=== PATIENT | female | born 1945 | race Caucasian/White ===

== ENCOUNTER → 2017-02-09 | Outpatient (CLI) | payer MEDICARE ==
[~2017-02-09] MED LIST: ALEN70TA5 PO; ASPI-496 PO; ATEN100T PO; ATOR40TA78 PO; CALC1TAB86 PO; CEFD300C37 PO; FLUO10CA7 PO; HYDR-3307 PO; LISI-170 PO; MULT-717 PO; NAPR500T PO; OMEP-110 PO; SITA50TA PO
== END | disposition home or self-care (01) ==
LOC: CFH 14:39 → EDSTATUS 16:00
PROVIDERS: ATTEND Psychiatry & Neurology Neurology
DX: M48.02 Spinal stenosis, cervical region (principal); M25.78 Osteophyte, vertebrae; M50.03 Cervical disc disorder with myelopathy, cervicothoracic region; M51.34 Other intervertebral disc degeneration, thoracic region; G31.9 Degenerative disease of nervous system, unspecified; Z98.1 Arthrodesis status
CPT/HCPCS: 72141

== ENCOUNTER → 2017-07-07 | Outpatient (CLI) | payer MEDICARE | END | disposition home or self-care (01) | LOC: CVU 08:39 | PROVIDERS: ATTEND Nurse Practitioner | DX: I10 Essential (primary) hypertension (principal); E78.5 Hyperlipidemia, unspecified; R20.0 Anesthesia of skin; E11.21 Type 2 diabetes mellitus with diabetic nephropathy; Z72.0 Tobacco use | CPT/HCPCS: 93922 ==

== ENCOUNTER → 2017-08-10 | Outpatient (CLI) | payer MEDICARE | END | disposition home or self-care (01) | LOC: CFH 15:09 | PROVIDERS: ATTEND Nurse Practitioner | DX: Z12.2 Encounter for screening for malignant neoplasm of respiratory organs (principal); I25.10 Atherosclerotic heart disease of native coronary artery without angina pectoris; R91.1 Solitary pulmonary nodule; F17.210 Nicotine dependence, cigarettes, uncomplicated | CPT/HCPCS: G0297 ==

== ENCOUNTER 2017-11-03 16:47 | Emergency (ER) | payer MEDICARE ==
[~2017-11-03] VITALS: Ht 157.5 cm; Wt 99.3 kg
[~2017-11-03 16:47] MED LIST changes: +NAPR-856 PO; -NAPR500T PO
[2017-11-03] MEDS ORDERED: OMNIPAQUE 350 MG/ML, 100ML BOTTLE ONE (18:01)
[2017-11-03 18:03] LABS: MICROSCOPIC INDICATED
[2017-11-03 18:04] LABS: CULTURE INDICATED? YES
[2017-11-03] MEDS ORDERED: METF500T4 PO (18:07)
[2017-11-03] MEDS ORDERED: HYDR12.53 PO (18:07)
[2017-11-03] MEDS ORDERED: INSU100V8 SQ (18:07)
[2017-11-03] MEDS ORDERED: INSU100C5 SQ-INSULIN (18:07)
[2017-11-03 18:11] LABS: MEAN CORPUSCULAR HEMOGLOBIN 32.1 pg (27.0-34.8); MEAN CORPUSCULAR HGB CONC 34.1 g/dL (32.4-35.8); MEAN CORPUSCULAR VOLUME 94.3 fL (80-100); MEAN PLATELET VOLUME 8.8 fL (7.4-10.4); PLATELET COUNT 259 x10^3/uL (130-400); RED BLOOD COUNT 5.15 x10^6/uL (3.82-5.3); RED CELL DISTRIBUTION WIDTH 13.8 % (9.6-15.2)
[2017-11-03 18:23] LABS: ALBUMIN 3.8 g/dL (3.4-5.0); ANION GAP 8 mmol/L (5-15); CALCIUM 9.4 mg/dL (8.5-10.1); CHLORIDE 97 mmol/L (98-107); CREATININE 0.82 mg/dL (0.55-1.02)
[2017-11-03] MEDS ORDERED: SODIUM CHLORIDE 0.9% 1,000ML IVBOLUS ONE (18:30)
[2017-11-03] MEDS ORDERED: SODIUM CHLORIDE FLUSH 10ML SYR IVF ONE (18:30)
[2017-11-03 19:06] LABS: MD YES
[2017-11-03 19:08] LABS: <PLATELET ESTIMATE> ADEQUATE; <PLT MORPHOLOGY> NORMAL PLT MORPH; <RBC MORPHOLOGY> NORMAL; EOS#(MANUAL) 0.26 x10^3/uL (0.0-0.4); EOS% (MANUAL) 2 % (1-7); MONOS#(MANUAL) 0.77 x10^3/uL (0.3-2.7); MONOS% (MANUAL) 6 % (2-9); SEG#(MANUAL) 5.68 x10^3/uL (1.8-6.8); SEGS% (MANUAL) 44 % (42-75)
[2017-11-03 19:11] LABS: LYMPHS% (MANUAL) 38 % (22-44); REACTIVE LYMPHS # (MANUAL) 1.29 x10^3/uL (0-0); REACTIVE LYMPHS % (MANUAL) 10 % (0-0)
[2017-11-03 20:28] VITALS: BP 124/82
== END 2017-11-03 22:04 | disposition home or self-care (01) ==
LOC: ED 19:29
DX: R33.9 Retention of urine, unspecified (principal); I10 Essential (primary) hypertension; E11.9 Type 2 diabetes mellitus without complications; E78.5 Hyperlipidemia, unspecified; Z87.891 Personal history of nicotine dependence
CPT/HCPCS: 36415; 51702; 74177; 76830; 80048; 81001; 82040; 85025; 87077; 87086; 87186; 96360; 96361; 99285; J7030; Q9967

== ENCOUNTER 2017-11-05 08:31 | Emergency (ER) | payer MEDICARE ==
[~2017-11-05] VITALS: Ht 157.5 cm; Wt 100.0 kg
[~2017-11-05 08:31] MED LIST changes: +HYDR12.53 PO; +INSU100C5 SQ-INSULIN; +INSU100V8 SQ; +METF500T4 PO
[2017-11-05 09:50] LABS: CULTURE INDICATED? YES; MICROSCOPIC INDICATED
[2017-11-05 09:51] LABS: BASOPHILS # (AUTO) 0.03 x10^3/uL (0-0.1); BASOPHILS % (AUTO) 0 % (0-1); EOSINOPHILS # (AUTO) 0.38 x10^3/uL (0-0.4); EOSINOPHILS % (AUTO) 4 % (1-7); LYMPHOCYTES # (AUTO) 3.56 x10^3/uL (1-3.4); LYMPHOCYTES % (AUTO) 34 % (22-44); MD NO; MEAN CORPUSCULAR HEMOGLOBIN 32.1 pg (27.0-34.8); MEAN CORPUSCULAR HGB CONC 34.2 g/dL (32.4-35.8); MEAN CORPUSCULAR VOLUME 93.8 fL (80-100); MEAN PLATELET VOLUME 8.5 fL (7.4-10.4); MONOCYTES # (AUTO) 0.93 x10^3/uL (0.2-0.8); MONOCYTES % (AUTO) 9 % (2-9); NEUTROPHILS # (AUTO) 5.45 x10^3/uL (1.8-6.8); NEUTROPHILS % (AUTO) 53 % (42-75); PLATELET COUNT 234 x10^3/uL (130-400); RED BLOOD COUNT 4.87 x10^6/uL (3.82-5.3); RED CELL DISTRIBUTION WIDTH 13.2 % (9.6-15.2)
[2017-11-05] MEDS ORDERED: HYDR12.53 PO (09:59)
[2017-11-05] MEDS ORDERED: SENN1TAB67 PO (10:00)
[2017-11-05 10:03] VITALS: BP 132/78
[2017-11-05 10:15] LABS: ALBUMIN 3.4 g/dL (3.4-5.0); ANION GAP 9 mmol/L (5-15); CALCIUM 9.3 mg/dL (8.5-10.1); CHLORIDE 103 mmol/L (98-107); CREATININE 0.87 mg/dL (0.55-1.02)
== END 2017-11-05 10:58 | disposition home or self-care (01) ==
LOC: ED 09:52
DX: N30.01 Acute cystitis with hematuria (principal); I10 Essential (primary) hypertension; E11.9 Type 2 diabetes mellitus without complications; E78.5 Hyperlipidemia, unspecified; Z87.891 Personal history of nicotine dependence
CPT/HCPCS: 36415; 80048; 81001; 82040; 85025; 87086; 99284

== ENCOUNTER → 2018-10-02 | Outpatient (CLI) | payer MEDICARE ==
[~2018-10-02] MED LIST changes: -ALEN70TA5 PO; +ALEN70TA6 PO; +HYDR12.517 PO; -HYDR12.53 PO; +METF500T17 PO; -METF500T4 PO; +SENN1TAB67 PO
== END | disposition home or self-care (01) ==
LOC: CFH 07:13
PROVIDERS: ATTEND Internal Medicine Cardiovascular Disease
DX: I08.3 Combined rheumatic disorders of mitral, aortic and tricuspid valves (principal); I11.9 Hypertensive heart disease without heart failure; E11.9 Type 2 diabetes mellitus without complications; R06.02 Shortness of breath; Z87.891 Personal history of nicotine dependence; E78.5 Hyperlipidemia, unspecified
CPT/HCPCS: 93306

== ENCOUNTER 2018-12-24 06:50 | Outpatient (CLI) | payer MEDICARE ==
[2018-12-24] MEDS ORDERED: REGADENOSON 0.4 MG/5 ML SYRINGE ONE (07:00)
== END 2018-12-24 23:59 | disposition home or self-care (01) ==
LOC: CFH 06:50
PROVIDERS: ATTEND Internal Medicine Cardiovascular Disease
DX: I25.10 Atherosclerotic heart disease of native coronary artery without angina pectoris (principal)
CPT/HCPCS: 78452; 93017; A9502; C9898; J2785

== ENCOUNTER 2019-02-27 15:30 | Inpatient (IN) | payer MEDICARE ==
[~2019-02-27] VITALS: Ht 152.4 cm; Wt 111.0 kg
[~2019-02-27 15:30] MED LIST changes: +CALC-725 PO; -CALC1TAB86 PO
--- NOTE | 2019-02-27 17:24 | NUR ---
unable to get knee and humerus xrays until pt on a guerney. pt can't stand
--- NOTE | 2019-02-27 17:42 | NUR ---
PT TO ROOM FROM LOBBY
[2019-02-27] MEDS ORDERED: NEOSPORIN OINT. PKT 1 PACKET ONE (17:50)
--- NOTE | 2019-02-27 17:52 | NUR ---
PT PRESENTED TO ED AFTER A MGLF. PT WITH RIGHT ELBOW ABRASION. RIGHT KNEE PAIN AND ICE PACK GIVEN TO PATIENT, LEFT FOREARM ABRASION. PT A&OX4. PT DENIES LOC. PT PLACED INROOM AND WOUNDS CLEANSED WITH NS AND BACITRACIN APPLIED.
--- NOTE | 2019-02-27 18:10 | NUR ---
PT TAKEN TO RADIOLOGY
--- NOTE | 2019-02-27 18:40 | NUR ---
PT REPORTED TO DR. MELO THAT SHE IS NOT ABLE TO WALK. CT ADDED FOR RIGHT KNEE.
[2019-02-27] MEDS ORDERED: HYDROcodone/APAP 10/325 MG TABLET ONE (18:58)
[2019-02-27] MEDS ORDERED: DIPH,PERTUSS(ACELL),TET VAC/PF 0.5 ML IM-VACC ONE ×2 (18:58→19:00)
[2019-02-27] MEDS ORDERED: HYDROcodone/APAP 10/325 MG TABLET PO ONE (19:00)
[2019-02-27] MEDS ORDERED: METF500T27 PO (19:21)
[2019-02-27] MEDS ORDERED: LISI1TAB5 PO (19:21)
[2019-02-27] MEDS ORDERED: INSU100I34 SQ (19:21)
--- NOTE | 2019-02-27 19:43 | NUR ---
[address]ED[address] SCAN TO BE DONE. PT MEDICATED ORDERED.
--- NOTE | 2019-02-27 20:24 | NUR ---
PT GIVEN FOOD AFTER REPORTS SHE THOUGHT HER BS WAS LOW. POC GLUCOSE DONE AND BS WAS 120. PT GIVEN CRACKERS AND MILK PER PT REQUEST.
--- NOTE | 2019-02-27 20:47 | NUR ---
PT IN CT.
--- NOTE | 2019-02-27 21:17 | NUR ---
PT BACK FROM CT AND REPORTS PAIN IS BETTER AFTER NORCO. CHART UP FOR MD RECHECK. VSS.
--- NOTE | 2019-02-27 21:19 | NUR ---
DR. MELO AT BEDSIDE. PT ALEXANDER ADMITTED DUE TO INABILITY TO PUT WEIAGHT ON HER RIGHT WRIST AND NOT BEAING BALE TO BEAR WEIGHT ON RIGHT LEG.
[2019-02-27 22:15] VITALS: BP 136/82
[2019-02-28] MEDS ORDERED: ENOXAPARIN 40 MG/0.4 ML SQ SCH (00:30)
[2019-02-28] MEDS ORDERED: hydrALAzine 20 MG/ML, 1ML IVPush PRN (00:30)
[2019-02-28] MEDS ORDERED: ACETAMINOPHEN 325 MG TABLET PO PRN (00:30)
[2019-02-28] MEDS ORDERED: LIDODERM 5% PATCH TD PRN (00:30)
[2019-02-28] MEDS: HYDROcodone/APAP 5/325 TABLET PO PRN ×4 (00:58→20:20)
[2019-02-28 02:06] VITALS: BP 128/81
[2019-02-28 06:48] VITALS: BP 112/74
[2019-02-28] MEDS: INSULIN LISPRO 100 UNITS/ML, PEN SQ-INSULIN SCH ×4 (07:15→16:31)
[2019-02-28] MEDS: ATENOLOL 100 MG TABLET PO SCH (09:16)
[2019-02-28] MEDS: SENNA/DOCUSATE TABLET PO SCH (09:17)
[2019-02-28] MEDS: OMEPRAZOLE 20 MG CAPSULE.DR PO SCH (09:17)
[2019-02-28] MEDS: CALCIUM/VITAMIN D3 250-125 TABLET PO SCH (09:17)
[2019-02-28] MEDS: MULTIVITAMIN 1 TABLET PO SCH (09:18)
[2019-02-28] MEDS: HYDROCHLOROTHIAZIDE 12.5 MG CAPSULE PO SCH (09:18)
[2019-02-28] MEDS: LISINOPRIL 20 MG TABLET PO SCH (09:19)
[2019-02-28 13:04] VITALS: BP 111/68
[2019-02-28 14:49] LABS: CREATININE 0.87 mg/dL (0.55-1.02)
[2019-02-28 19:22] VITALS: BP 116/75
[2019-02-28] MEDS: ASPIRIN 81 MG TABLET EC PO SCH (20:20)
[2019-02-28] MEDS: ATORVASTATIN 20 MG TABLET PO SCH (20:21)
[2019-02-28] MEDS: ENOXAPARIN 30 MG/0.3 ML SQ SCH (20:21)
[2019-02-28] MEDS: INSULIN GLARGINE 100 UNITS/ML, PEN SQ-INSULIN SCH (21:59)
[2019-03-01 02:45] VITALS: BP 121/72
[2019-03-01 05:31] LABS: BASOPHILS # (AUTO) 0.05 x10^3/uL (0-0.1); BASOPHILS % (AUTO) 1 % (0-1); EOSINOPHILS # (AUTO) 0.42 x10^3/uL (0-0.4); EOSINOPHILS % (AUTO) 5 % (1-7); LYMPHOCYTES # (AUTO) 3.61 x10^3/uL (1-3.4); LYMPHOCYTES % (AUTO) 40 % (22-44); MD NO; MEAN CORPUSCULAR HEMOGLOBIN 31.4 pg (27.0-34.8); MEAN CORPUSCULAR HGB CONC 32.9 g/dL (32.4-35.8); MEAN CORPUSCULAR VOLUME 95.7 fL (80-100); MEAN PLATELET VOLUME 8.7 fL (7.4-10.4); MONOCYTES # (AUTO) 0.85 x10^3/uL (0.2-0.8); MONOCYTES % (AUTO) 9 % (2-9); NEUTROPHILS # (AUTO) 4.06 x10^3/uL (1.8-6.8); NEUTROPHILS % (AUTO) 45 % (42-75); PLATELET COUNT 205 x10^3/uL (130-400); RED BLOOD COUNT 4.56 x10^6/uL (3.82-5.3); RED CELL DISTRIBUTION WIDTH 13.9 % (9.6-15.2)
[2019-03-01 05:48] LABS: CHLORIDE 93 mmol/L (98-107)
[2019-03-01 05:54] LABS: ANION GAP 9 mmol/L (5-15); CALCIUM 9.1 mg/dL (8.5-10.1)
[2019-03-01] MEDS: HYDROcodone/APAP 5/325 TABLET PO PRN ×2 (06:25→16:40)
[2019-03-01] MEDS: INSULIN LISPRO 100 UNITS/ML, PEN SQ-INSULIN SCH ×3 (07:35→16:40)
[2019-03-01 07:50] VITALS: BP 124/74
[2019-03-01] MEDS: CALCIUM/VITAMIN D3 250-125 TABLET PO SCH (08:36)
[2019-03-01] MEDS: HYDROCHLOROTHIAZIDE 12.5 MG CAPSULE PO SCH (08:36)
[2019-03-01] MEDS: ATORVASTATIN 20 MG TABLET PO SCH (08:36)
[2019-03-01] MEDS: OMEPRAZOLE 20 MG CAPSULE.DR PO SCH (08:36)
[2019-03-01] MEDS: LISINOPRIL 20 MG TABLET PO SCH (08:36)
[2019-03-01] MEDS: ASPIRIN 81 MG TABLET EC PO SCH (08:36)
[2019-03-01] MEDS: MULTIVITAMIN 1 TABLET PO SCH (08:36)
[2019-03-01] MEDS: DOCUSATE 100 MG CAPSULE PO PRN (08:37)
[2019-03-01] MEDS: ATENOLOL 100 MG TABLET PO SCH (08:37)
[2019-03-01] MEDS: SENNA/DOCUSATE TABLET PO SCH (08:37)
[2019-03-01] MEDS: ENOXAPARIN 30 MG/0.3 ML SQ SCH ×2 (08:37→20:46)
[2019-03-01 13:03] VITALS: BP 110/65
[2019-03-01 19:24] VITALS: BP 123/80
[2019-03-01] MEDS: INSULIN GLARGINE 100 UNITS/ML, PEN SQ-INSULIN SCH (20:47)
[2019-03-02 00:55] VITALS: BP 118/76
[2019-03-02 07:27] VITALS: BP 118/79
[2019-03-02] MEDS: INSULIN LISPRO 100 UNITS/ML, PEN SQ-INSULIN SCH ×3 (07:51→16:52)
[2019-03-02] MEDS ORDERED: metFORMIN XR 500 MG TAB.ER.24H PO SCH (09:00)
[2019-03-02] MEDS: OMEPRAZOLE 20 MG CAPSULE.DR PO SCH (09:23)
[2019-03-02] MEDS: DOCUSATE 100 MG CAPSULE PO PRN (09:23)
[2019-03-02] MEDS: ASPIRIN 81 MG TABLET EC PO SCH (09:23)
[2019-03-02] MEDS: ATENOLOL 100 MG TABLET PO SCH (09:23)
[2019-03-02] MEDS: ATORVASTATIN 20 MG TABLET PO SCH (09:23)
[2019-03-02] MEDS: CALCIUM/VITAMIN D3 250-125 TABLET PO SCH (09:24)
[2019-03-02] MEDS: MULTIVITAMIN 1 TABLET PO SCH (09:24)
[2019-03-02] MEDS: LISINOPRIL 20 MG TABLET PO SCH (09:25)
[2019-03-02] MEDS: ENOXAPARIN 30 MG/0.3 ML SQ SCH ×2 (09:25→20:53)
[2019-03-02] MEDS: HYDROcodone/APAP 5/325 TABLET PO PRN (09:25)
[2019-03-02] MEDS: SENNA/DOCUSATE TABLET PO SCH (09:25)
[2019-03-02 12:54] VITALS: BP 128/64
[2019-03-02] MEDS: metFORMIN XR 500 MG TAB.ER.24H PO SCH (16:51)
[2019-03-02 19:22] VITALS: BP 121/77
[2019-03-02] MEDS: INSULIN GLARGINE 100 UNITS/ML, PEN SQ-INSULIN SCH (20:55)
[2019-03-03 01:15] VITALS: BP 122/84
[2019-03-03 05:31] LABS: ANION GAP 8 mmol/L (5-15); CALCIUM 8.8 mg/dL (8.5-10.1); CHLORIDE 98 mmol/L (98-107); CREATININE 0.78 mg/dL (0.55-1.02)
[2019-03-03] MEDS: INSULIN LISPRO 100 UNITS/ML, PEN SQ-INSULIN SCH ×3 (07:00→17:20)
[2019-03-03 07:39] VITALS: BP 120/78
[2019-03-03] MEDS: ENOXAPARIN 30 MG/0.3 ML SQ SCH ×2 (08:39→20:58)
[2019-03-03] MEDS: ASPIRIN 81 MG TABLET EC PO SCH (08:39)
[2019-03-03] MEDS: OMEPRAZOLE 20 MG CAPSULE.DR PO SCH (08:40)
[2019-03-03] MEDS: LISINOPRIL 20 MG TABLET PO SCH (08:41)
[2019-03-03] MEDS: ATENOLOL 100 MG TABLET PO SCH (08:41)
[2019-03-03] MEDS: ATORVASTATIN 20 MG TABLET PO SCH (08:41)
[2019-03-03] MEDS: CALCIUM/VITAMIN D3 250-125 TABLET PO SCH (08:41)
[2019-03-03] MEDS: SENNA/DOCUSATE TABLET PO SCH (08:42)
[2019-03-03] MEDS: MULTIVITAMIN 1 TABLET PO SCH (08:42)
[2019-03-03 14:41] VITALS: BP 103/66
[2019-03-03] MEDS: metFORMIN XR 500 MG TAB.ER.24H PO SCH (17:20)
[2019-03-03 19:57] VITALS: BP 127/71
[2019-03-03] MEDS: INSULIN GLARGINE 100 UNITS/ML, PEN SQ-INSULIN SCH (20:58)
[2019-03-04] MEDS: TEMAZEPAM 15 MG CAPSULE PO PRN ×2 (01:27→21:33)
[2019-03-04 01:48] VITALS: BP 136/78
[2019-03-04 04:18] LABS: BASOPHILS # (AUTO) 0.09 x10^3/uL (0-0.1); BASOPHILS % (AUTO) 1 % (0-1); EOSINOPHILS # (AUTO) 0.27 x10^3/uL (0-0.4); EOSINOPHILS % (AUTO) 3 % (1-7); LYMPHOCYTES # (AUTO) 3.41 x10^3/uL (1-3.4); LYMPHOCYTES % (AUTO) 32 % (22-44); MD NO; MEAN CORPUSCULAR HEMOGLOBIN 32.1 pg (27.0-34.8); MEAN CORPUSCULAR HGB CONC 33.5 g/dL (32.4-35.8); MEAN CORPUSCULAR VOLUME 95.9 fL (80-100); MEAN PLATELET VOLUME 8.6 fL (7.4-10.4); MONOCYTES # (AUTO) 0.83 x10^3/uL (0.2-0.8); MONOCYTES % (AUTO) 8 % (2-9); NEUTROPHILS # (AUTO) 6.04 x10^3/uL (1.8-6.8); NEUTROPHILS % (AUTO) 57 % (42-75); PLATELET COUNT 226 x10^3/uL (130-400); RED BLOOD COUNT 4.55 x10^6/uL (3.82-5.3); RED CELL DISTRIBUTION WIDTH 14.1 % (9.6-15.2)
[2019-03-04 04:32] LABS: ANION GAP 9 mmol/L (5-15); CALCIUM 8.9 mg/dL (8.5-10.1); CHLORIDE 100 mmol/L (98-107)
[2019-03-04] MEDS: INSULIN LISPRO 100 UNITS/ML, PEN SQ-INSULIN SCH ×3 (07:30→17:18)
[2019-03-04 08:05] VITALS: BP 121/62
[2019-03-04] MEDS: ASPIRIN 81 MG TABLET EC PO SCH (08:07)
[2019-03-04] MEDS: ATENOLOL 100 MG TABLET PO SCH (08:08)
[2019-03-04] MEDS: OMEPRAZOLE 20 MG CAPSULE.DR PO SCH (08:08)
[2019-03-04] MEDS: CALCIUM/VITAMIN D3 250-125 TABLET PO SCH (08:08)
[2019-03-04] MEDS: LISINOPRIL 20 MG TABLET PO SCH (08:08)
[2019-03-04] MEDS: ATORVASTATIN 20 MG TABLET PO SCH (08:08)
[2019-03-04] MEDS: ENOXAPARIN 30 MG/0.3 ML SQ SCH ×2 (08:09→20:24)
[2019-03-04] MEDS: MULTIVITAMIN 1 TABLET PO SCH (08:09)
[2019-03-04] MEDS: SENNA/DOCUSATE TABLET PO SCH (08:09)
[2019-03-04 13:06] VITALS: BP 126/79
[2019-03-04] MEDS: metFORMIN XR 500 MG TAB.ER.24H PO SCH (17:17)
[2019-03-04 19:30] VITALS: BP 148/80
[2019-03-04] MEDS: INSULIN GLARGINE 100 UNITS/ML, PEN SQ-INSULIN SCH (20:21)
[2019-03-05 02:08] VITALS: BP 109/64
[2019-03-05 05:13] LABS: ANION GAP 8 mmol/L (5-15); CALCIUM 9.2 mg/dL (8.5-10.1); CHLORIDE 101 mmol/L (98-107)
[2019-03-05 05:14] LABS: BASOPHILS # (AUTO) 0.05 x10^3/uL (0-0.1); BASOPHILS % (AUTO) 1 % (0-1); EOSINOPHILS # (AUTO) 0.22 x10^3/uL (0-0.4); EOSINOPHILS % (AUTO) 2 % (1-7); LYMPHOCYTES # (AUTO) 2.83 x10^3/uL (1-3.4); LYMPHOCYTES % (AUTO) 32 % (22-44); MD NO; MEAN CORPUSCULAR VOLUME 93.7 fL (80-100); MEAN PLATELET VOLUME 8.3 fL (7.4-10.4); MONOCYTES # (AUTO) 1.02 x10^3/uL (0.2-0.8); MONOCYTES % (AUTO) 11 % (2-9); NEUTROPHILS # (AUTO) 4.83 x10^3/uL (1.8-6.8); NEUTROPHILS % (AUTO) 54 % (42-75); PLATELET COUNT 224 x10^3/uL (130-400); RED BLOOD COUNT 4.72 x10^6/uL (3.82-5.3)
[2019-03-05 05:16] LABS: CREATININE 0.81 mg/dL (0.55-1.02)
[2019-03-05 06:41] VITALS: BP 128/68
[2019-03-05] MEDS: INSULIN LISPRO 100 UNITS/ML, PEN SQ-INSULIN SCH ×2 (07:42→11:47)
[2019-03-05] MEDS: SENNA/DOCUSATE TABLET PO SCH (09:00)
[2019-03-05] MEDS: ASPIRIN 81 MG TABLET EC PO SCH (09:13)
[2019-03-05] MEDS: OMEPRAZOLE 20 MG CAPSULE.DR PO SCH (09:14)
[2019-03-05] MEDS: ENOXAPARIN 30 MG/0.3 ML SQ SCH (09:14)
[2019-03-05] MEDS: LISINOPRIL 20 MG TABLET PO SCH (09:14)
[2019-03-05] MEDS: ATORVASTATIN 20 MG TABLET PO SCH (09:14)
[2019-03-05] MEDS: CALCIUM/VITAMIN D3 250-125 TABLET PO SCH (09:14)
[2019-03-05] MEDS: ATENOLOL 100 MG TABLET PO SCH (09:14)
[2019-03-05] MEDS: MULTIVITAMIN 1 TABLET PO SCH (09:14)
[2019-03-05] MEDS ORDERED: ENOX30DI3 SQ (10:42)
== END 2019-03-05 12:59 | DRG 563 ==
LOC: ED 21:00 → EDIP 21:21 → 4NOR 22:00
PROVIDERS: ADMIT Internal Medicine; ATTEND Internal Medicine
DX: S82.04 Comminuted fracture of patella (principal); Z68.41 Body mass index [BMI] 40.0-44.9, adult; G45.9 Transient cerebral ischemic attack, unspecified; E87.1 Hypo-osmolality and hyponatremia; Z68.42 Body mass index [BMI] 45.0-49.9, adult; E66.01 Morbid (severe) obesity due to excess calories; W18.30XA Fall on same level, unspecified, initial encounter; I10 Essential (primary) hypertension; T14.8XXA Other injury of unspecified body region, initial encounter; S63.501A Unspecified sprain of right wrist, initial encounter; E11.9 Type 2 diabetes mellitus without complications; E78.5 Hyperlipidemia, unspecified; Z87.891 Personal history of nicotine dependence; Z86.73 Personal history of transient ischemic attack (TIA), and cerebral infarction without residual deficits; Z90.49 Acquired absence of other specified parts of digestive tract; Z90.89 Acquired absence of other organs; Z82.3 Family history of stroke
CPT/HCPCS: 36415; 80048; 82565; 82962; 85025; 90471; 90715; 99285; G0378; J1650; J1815

== ENCOUNTER 2019-03-18 10:19 | Emergency (ER) | payer MEDICARE ==
[~2019-03-18] VITALS: Ht 152.4 cm; Wt 106.0 kg
[~2019-03-18 10:19] MED LIST changes: +ENOX30DI3 SQ; +INSU100I34 SQ; +LISI1TAB5 PO; +METF500T27 PO
--- NOTE | 2019-03-18 11:11 | NUR ---
[employer] INSTRUMENT REPAIRER: TO ROOM FROM LOBBY
--- NOTE | 2019-03-18 11:26 | NUR ---
patient to ED for worsening right ankle; wrist; knee pain since February 27. Attached to monitor; VSS; awaiting MD assessment; report to Mony DEMPSEY;
--- NOTE | 2019-03-18 12:00 | NUR ---
OBSERVED PT RESTING QUIETLY ON CART, USING CELL PHONE, SIDE RAILS UP X2.
--- NOTE | 2019-03-18 12:46 | NUR ---
PT RESTING ON BED, SIDE RAILS UP X2, CALL LIGHT W/IN REACH. PT LAUGHING W/ FRIEND. FELL LAST WEEK, INJURED RT FOOT & WRIST. FOOT CAUGHT IN WALKER ON MONDAY. NORCO 5/325MG LAST NOC FOR PAIN. "I CAN'T FEEL MY FOOT". LIMITED ROM RT ANKLE, ECCHYMOSIS TO GREAT TOE NOTED, PEDAL PULSE STRONG & REG. PT ADMITS TO POSSIBLE DIABETIC NEUROPATHY. PT'S ROLLING WALKER IN ROOM.
--- NOTE | 2019-03-18 12:54 | NUR ---
DR MELO BS. EMT BS TO APPLY SPLINT
--- NOTE | 2019-03-18 13:30 | NUR ---
BED CARTAGENA PROVIDED.
--- NOTE | 2019-03-18 14:08 | NUR ---
AWAITING ORTHO CONSULT.
--- NOTE | 2019-03-18 14:37 | NUR ---
PT DIET TRAY ORDERED
--- NOTE | 2019-03-18 14:47 | NUR ---
SPOKE WITH [facility]. SOMEONE WILL BRING BRACE SOON AVAILABLE
--- NOTE | 2019-03-18 15:00 | NUR ---
LUNCH TRAY DELIVERED TO PT. PT AWAITING DME.
--- NOTE | 2019-03-18 16:21 | NUR ---
PT DONE W/ LUNCH; TRAY REMOVED. RESTING COMFORTABLY, TALKING W/ FRIEND IN ROOM. STILL AWAITING ORTHO DME.
--- NOTE | 2019-03-18 16:50 | NUR ---
[facility] HERE W/ DME
[2019-03-18] MEDS ORDERED: ESTRADIOL VG (17:15)
[2019-03-18] MEDS ORDERED: CALCIUM+D (17:15)
[2019-03-18] MEDS ORDERED: INSU100I34 SQ (17:15)
[2019-03-18] MEDS ORDERED: CALCIUM +D (17:15)
[2019-03-18] MEDS ORDERED: MULTIVITAMIN (17:15)
[2019-03-18 17:44] VITALS: BP 151/69
== END 2019-03-18 17:47 | disposition home or self-care (01) ==
LOC: ED 11:43
DX: S82.044A Nondisplaced comminuted fracture of right patella, initial encounter for closed fracture (principal); S62.164A Nondisplaced fracture of pisiform, right wrist, initial encounter for closed fracture; L03.031 Cellulitis of right toe; E78.5 Hyperlipidemia, unspecified; I10 Essential (primary) hypertension; E11.9 Type 2 diabetes mellitus without complications; G89.29 Other chronic pain; Z90.89 Acquired absence of other organs; Z86.73 Personal history of transient ischemic attack (TIA), and cerebral infarction without residual deficits; Z90.49 Acquired absence of other specified parts of digestive tract; W18.30XA Fall on same level, unspecified, initial encounter
CPT/HCPCS: 29125; 99283

== ENCOUNTER 2019-06-19 14:35 | Outpatient (CLI) | payer MEDICARE ==
[~2019-06-19 14:35] MED LIST changes: +CALCIUM +D; +CALCIUM+D; +ESTRADIOL VG; -HYDR-3307 PO; +HYDR-36 PO; +LISI1TAB19 PO; -LISI1TAB5 PO; +MULTIVITAMIN
== END 2019-06-19 23:59 | disposition home or self-care (01) ==
LOC: CFH 14:35
PROVIDERS: ATTEND Nurse Practitioner
DX: Z12.2 Encounter for screening for malignant neoplasm of respiratory organs (principal); R91.1 Solitary pulmonary nodule; M51.34 Other intervertebral disc degeneration, thoracic region; F17.210 Nicotine dependence, cigarettes, uncomplicated
CPT/HCPCS: G0297

== ENCOUNTER → 2019-09-17 | Outpatient (CLI) | payer MEDICARE | END | disposition home or self-care (01) | LOC: CFH 14:26 | PROVIDERS: ATTEND Nurse Practitioner | DX: I65.23 Occlusion and stenosis of bilateral carotid arteries (principal) | CPT/HCPCS: 93880 ==

== ENCOUNTER → 2020-06-22 | Outpatient (CLI) | payer MEDICARE ==
[~2020-06-22] MED LIST changes: +FLUO10CA14 PO; -FLUO10CA7 PO; +HYDR-3246 PO; -HYDR-36 PO; -LISI1TAB19 PO; +LISI1TAB39 PO
== END | disposition home or self-care (01) ==
LOC: CFH 09:58
PROVIDERS: ATTEND Nurse Practitioner
DX: Z12.2 Encounter for screening for malignant neoplasm of respiratory organs (principal); R91.1 Solitary pulmonary nodule; M47.814 Spondylosis without myelopathy or radiculopathy, thoracic region; F17.219 Nicotine dependence, cigarettes, with unspecified nicotine-induced disorders; Z90.49 Acquired absence of other specified parts of digestive tract
CPT/HCPCS: G0297

== ENCOUNTER → 2020-08-26 | Outpatient (CLI) | payer MEDICARE ==
[~2020-08-26] MED LIST changes: -ALEN70TA6 PO; +ALEN70TA66 PO; -FLUO10CA14 PO; +FLUO10CA15 PO
== END | disposition home or self-care (01) ==
LOC: RAD 10:36
PROVIDERS: ATTEND Nurse Practitioner
DX: S09.90XA Unspecified injury of head, initial encounter (principal); G31.89 Other specified degenerative diseases of nervous system; X58.XXXA Exposure to other specified factors, initial encounter; Y93.89 Activity, other specified; Y92.89 Other specified places as the place of occurrence of the external cause; Y99.8 Other external cause status
CPT/HCPCS: 70450